=== PATIENT | female | born 1965 | race Caucasian/White ===

== ENCOUNTER 2023-06-24 15:16 | Emergency (ER) | payer OTHER, SELFPAY ==
--- NOTE | ~2023-06-24 | XR_ITS ---
XR ankle RT min 3V DATE: 06/24/2023 16:09 INDICATION: Lateral and posterior pain. TECHNIQUE: 4 views COMPARISON: None FINDINGS: There is moderate plantar enthesopathy. No fracture or dislocation of the ankle or disrupt ion of the ankle mortise. There is osteoarthritic change at the tarsal and tarsometatarsal joints. IMPRESSION: Plantar calcaneal enthesopathy Osteoarthritis Reviewed, dictated and finalized at location B.
[2023-06-24 15:24] VITALS: BP 151/85; PULSE 59; RESP 18; TEMP 36.8; O2SAT 98
--- NOTE | 2023-06-24 15:28 | ED.EXTPRO ---
HPI - Extremity Problem General Chief complaint: Extremity Injury, Lower Stated complaint: Right ankle injury Source: patient and RN notes reviewed History of Present Illness HPI Narrative: 57 yo F presents to urgent care with complaints of right lateral ankle pain, mostly when she walks. Pt states the pain will also occur in her right lateral, proximal foot but isn't as bad. Pt states she also has some right lateral thigh pain, intermittently. Pt also having right lateral arm pain, intermittently. States these pains all started after she missed a step on Thursday, causing her to roll her ankle. 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 Pt states her foot and ankle keep going out on her and she is unable to go to work today. Denies any chest pain, SOB, vomiting, abdominal pain, spinal tenderness, numbness, tingling, fevers, or chills. Pt took 800 mg of ibuprofen earlier today with moderate relief. Related Data Home Medications Medication Instructions Recorded Confirmed No Home Medications 06/24/23 06/24/23 Allergies Allergy/AdvReac Type Severity Reaction Status Date / Time Penicillins Allergy Rash Verified 06/24/23 15:40 Review of Systems Review of Systems: CONSTITUTIONAL: Denies fever, chills, or sweats. EYES: Denies visual changes, redness, or discharge. ENT: Denies otalgia and sore throat CARDIOVASCULAR: Denies chest pain, palpitations, or edema. RESPIRATORY: Denies cough or dyspnea. GASTROINTESTINAL: Denies abdominal pain, nausea, vomiting, or diarrhea. GENITOURINARY: Denies dysuria or hematuria. SKIN: Denies rash or itching. MUSCULOSKELETAL: right ankle, thigh, and arm pain NEUROLOGIC: Denies headache, numbness, or weakness. Pertinent positives per HPI. PMFSH Comments At the time of my signature, I reviewed and agree with the nursing past medical, surgical, social, and family history. There is no relevant family history pertinent to the patient complaint. Exam Narrative: GENERAL: This is a well-nourished, well-developed patient, in no apparent distress. HEAD: normocephalic, atraumatic. EYES: Sclera clear/white. Vision is grossly intact. EARS: External ears normal, auditory canals clear and without drainage. Hearing grossly intact. NOSE: External nose normal with no obvious nasal discharge, nares without redness, no rhinorrhea. THROAT: Mucous membranes moist, posterior pharynx clear. NECK: Neck supple, non-tender without lymphadenopathy, masses or thyromegaly. CARDIOVASCULAR: Regular rate RESPIRATORY: No respiratory distress SKIN: warm, intact with no suspicious lesions or rash, good texture and turgor. NEURO: awake, alert, and oriented to person, place and time. There were no obvious focal neurologic abnormalities. EXTREMITIES: Tenderness to right lateral maleolus BACK: Nontender without deformity or crepitus. No flank tenderness. Course Course Level of Care: Express Care Visit Vital Signs Vital signs: Vital Signs Temperature 98.2 F 06/24/23 15:24 Pulse Rate 59 L 06/24/23 15:24 Respiratory Rate 18 06/24/23 15:24 Blood Pressure 151/85 H 06/24/23 15:24 Pulse Oximetry 98 06/24/23 15:24 Oxygen Delivery Room Air 06/24/23 15:24 Temperature 98.2 F 06/24/23 15:24 Pulse Rate 59 L 06/24/23 15:24 Respiratory Rate 18 06/24/23 15:24 Blood Pressure 151/85 H 06/24/23 15:24 Pulse Oximetry 98 06/24/23 15:24 Oxygen Delivery Room Air 06/24/23 15:24 Reviewed MDM - Extremity (Nontraumatic) MDM Narrative Medical decision making narrative: Use the RICE method at home. May take ibuprofen and/or Tylenol if needed. If symptoms persist in 1 week after conservative treatment, follow-up with specialist. Differential Diagnosis Differential diagnosis: Likely other (Ankle fracture, ankle sprain, muscle strain) Imaging Data Radiologist's impression: [facility] [place],
== END 2023-06-24 16:35 | disposition home or self-care (01) ==
PROVIDERS: Emergency Provider Nurse Practitioner Family; PCP Physician Assistant
DX: S93.401A Sprain of unspecified ligament of right ankle, initial encounter (principal); S96.911A Strain of unspecified muscle and tendon at ankle and foot level, right foot, initial encounter; X50.9XXA Other and unspecified overexertion or strenuous movements or postures, initial encounter; I25.10 Atherosclerotic heart disease of native coronary artery without angina pectoris; Z95.5 Presence of coronary angioplasty implant and graft
CPT/HCPCS: 73610; 99213; G0463